=== PATIENT | female | born 1965 | race Caucasian/White ===

== ENCOUNTER 2020-08-17 21:08 | Emergency (ER) | payer MEDICARE ==
[2020-08-17] MEDS ORDERED: predniSONE 20 MG Tab PO ONE (21:27)
--- NOTE | 2020-08-17 21:34 | EDM.PDOC ---
ED HPI GENERAL MEDICAL PROBLEM - General Chief Complaint: Skin Complaint Stated Complaint: ITCHY RASH ON NECK & HEAD Time Seen by Provider: 08/17/20 21:16 Source of Information: Reports: Patient, RN Notes Reviewed History Limitations: Reports: No Limitations - History of Present Illness INITIAL COMMENTS - FREE TEXT/NARRATIVE: Patient is a 54-year-old female presenting to the emergency department with complaints of an itchy rash to the back of her neck extending up into her scalp. She states the symptoms began on Thursday of this week and have been fairly consistent since that time. Thursday of last week, she dyed her hair with some hair dye and thinks this may be related to her rash. She is been taking Benadryl at bedtime which mostly helps her sleep and also helps with the itching. Patient has a known history of's allergy to sulfa but no other known allergies. Denies any fever or chills. - Related Data Allergies Allergy/AdvReac Type Severity Reaction Status Date / Time Sulfa (Sulfonamide Allergy Severe Rash Verified 08/17/20 21:20 Antibiotics) Home Meds: Home Meds predniSONE [Prednisone] 20 mg PO BID 5 Days #9 tablet 08/17/20 [Rx] ED ROS GENERAL - Review of Systems Review Of Systems: See Below Constitutional: Reports: No Symptoms. Denies: Fever, Chills, Weakness HEENT: Reports: No Symptoms Respiratory: Reports: No Symptoms Cardiovascular: Reports: No Symptoms Endocrine: Reports: No Symptoms GI/Abdominal: Reports: No Symptoms : Reports: No Symptoms Musculoskeletal: Reports: No Symptoms Skin: Reports: Rash Neurological: Reports: No Symptoms Psychiatric: Reports: No Symptoms Hematologic/Lymphatic: Reports: No Symptoms Immunologic: Reports: No Symptoms ED EXAM, SKIN/RASH Exam: See Below General Appearance: Alert, WD/WN, No Apparent Distress Respiratory/Chest: No Respiratory Distress, Lungs Clear, Normal Breath Sounds, No Accessory Muscle Use, Chest Non-Tender Cardiovascular: Normal Peripheral Pulses, Regular Rate, Rhythm, No Edema, No Gallop, No JVD, No Murmur, No Rub GI/Abdominal: Normal Bowel Sounds, Soft, Non-Tender, No Organomegaly, No Distention, No Abnormal Bruit, No Mass Neurological: Alert, Oriented, CN II-XII Intact, Normal Cognition, Normal Gait, Normal Reflexes, No Motor/Sensory Deficits Psychiatric: Normal Affect, Normal Mood Skin: Warm, Dry, Rash (Maculopapular rash to the back of the neck extending into the hairline. No crusting or open lesions noted.) Course - Vital Signs Last Recorded V/S: Last Vital Signs Temp 97.4 F 08/17/20 21:21 Pulse 106 H 08/17/20 21:21 Resp 20 08/17/20 21:21 BP 130/100 H 08/17/20 21:21 Pulse Ox 97 08/17/20 21:21 - Orders/Labs/Meds Orders: Active Orders 24 hr Category Date Time Status predniSONE Med 08/17/20 21:27 Once 20 mg PO ONETIME ONE - Re-Assessments/Exams Free Text/Narrative Re-Assessment/Exam: Patient is a 54-year-old female presenting to the emergency department with complaints of an itchy rash to the back of her neck. This rash presented shortly after she dyed her hair with an hair dye. On exam, patient does have a itchy, maculopapular rash to her posterior neck extending up into her hairline. There are no open areas or crusting's to suggest bacterial infection. We will start her on prednisone 20 mg twice daily for 5 days. She states that she plans to follow-up in the clinic on Thursday to establish care with a provider, therefore she may have it reevaluated at that time. Continued use Benadryl as needed. Discharge instructions as documented. Departure - Departure Time of Disposition: 21:31 Disposition: Home, Self-Care 01 Condition: Good Clinical Impression: Allergic dermatitis - Discharge Information *PRESCRIPTION DRUG MONITORING PROGRAM REVIEWED*: No *COPY OF PRESCRIPTION DRUG MONITORING REPORT IN PATIENT [place]: No Prescriptions: predniSONE [Prednisone] 20 mg PO BID 5 Days #9 tablet Instructions: Rash, Adult Referrals: PCP,None [Primary Care Provider] - Additional Instructions: You were seen in the emergency department today for an itchy rash to the back of your neck extending up into your hairline. As we discussed, this is likely an allergic reaction to the hair dye that you used. You have been started on prednisone. Take this medication as prescribed. Continue to use Benadryl as needed for the itching. If rash does not resolve by the time you complete the prednisone, recommend follow-up in the clinic for reevaluation. Return to ER for any new or worsening symptoms. Sepsis Event Note (ED) - Evaluation Sepsis Screening Result: No Definite Risk - Focused Exam Vital Signs: Vital Signs Temp Pulse Resp BP Pulse Ox 08/17/20 21:21 97.4 F 106 H 20 130/100 H 97 - My Orders Last 24 Hours: My Active Orders 08/17/20 21:27 predniSONE 20 mg PO ONETIME ONE - Assessment/Plan Last 24 Hours: My Active Orders 08/17/20 21:27 predniSONE 20 mg PO ONETIME ONE
== END 2020-08-17 21:50 | disposition home or self-care (01) ==
LOC: JD.ED 21:08
DX: L23.9 Allergic contact dermatitis, unspecified cause (principal); Z88.2 Allergy status to sulfonamides
CPT/HCPCS: 99282; J7512; 99283